=== PATIENT | female | born 1960 | race African-American/Black ===

== ENCOUNTER 2021-03-25 08:39 | Emergency (ER) | payer MEDICARE ==
[~2021-03-25] VITALS: Ht 162.6 cm; Wt 68.2 kg
[2021-03-25] MEDS ORDERED: METF-960 PO (08:47)
[2021-03-25] MEDS ORDERED: SIMV-259 PO (08:47)
[2021-03-25] MEDS ORDERED: AMLO2.5T96 PO (08:47)
[2021-03-25 12:31] VITALS: BP 138/84
== END 2021-03-25 12:42 | disposition home or self-care (01) ==
LOC: EMS 08:50
DX: S16.1XXA Strain of muscle, fascia and tendon at neck level, initial encounter (principal); S39.012A Strain of muscle, fascia and tendon of lower back, initial encounter; I10 Essential (primary) hypertension; E11.9 Type 2 diabetes mellitus without complications; E78.00 Pure hypercholesterolemia, unspecified; Z79.84 Long term (current) use of oral hypoglycemic drugs; Z79.899 Other long term (current) drug therapy; W18.39XA Other fall on same level, initial encounter; Y93.89 Activity, other specified; Y92.89 Other specified places as the place of occurrence of the external cause; Y99.8 Other external cause status
CPT/HCPCS: 72125; 72131; 99285

== ENCOUNTER 2021-04-01 07:11 | Emergency (ER) | payer MEDICARE ==
[~2021-04-01] VITALS: Ht 162.6 cm; Wt 72.7 kg
[~2021-04-01 07:11] MED LIST: AMLO2.5T96 PO; METF-960 PO; SIMV-259 PO
[2021-04-01 07:15] VITALS: BP 152/84
[2021-04-01] MEDS ORDERED: IBUPROFEN 600 MG TABLET PO ONE (07:30)
[2021-04-01] MEDS ORDERED: ACETAMINOPHEN 500 MG TABLET PO ONE (07:30)
[2021-04-01] MEDS ORDERED: LIDOCAINE 5% TRANSDERMAL PATCH TD ONE (07:30)
== END 2021-04-01 08:04 | disposition home or self-care (01) ==
LOC: EMS 07:18
DX: M54.16 Radiculopathy, lumbar region (principal); E11.9 Type 2 diabetes mellitus without complications; E78.00 Pure hypercholesterolemia, unspecified; I10 Essential (primary) hypertension
CPT/HCPCS: 99284; Z7502; Z7610